=== PATIENT | male | born 1990 | race Caucasian/White ===

== ENCOUNTER 2023-10-21 17:15 | Emergency (ER) | payer SELFPAY ==
[2023-10-21] MEDS: Ketorolac 30 MG/ML SDV IM ONE (17:20)
[2023-10-21] MEDS: Ketorolac 30 MG/ML SDV ONE (18:08)
[2023-10-21] MEDS: Amoxicillin/Clavulanate K 875-125 MG Tab PO ONE (18:08)
[2023-10-21] MEDS: Amoxicillin/Clavulanate K 875-125 MG Tab ONE (18:08)
== END 2023-10-21 18:35 | disposition home or self-care (01) ==
LOC: KA.ED 17:15
DX: J36 Peritonsillar abscess (principal); K02.9 Dental caries, unspecified
CPT/HCPCS: 96372; 99282; A9270-GY; J1885

== ENCOUNTER 2024-01-20 02:53 | Emergency (ER) | payer SELFPAY | END 2024-01-20 09:39 | disposition EXP | LOC: KA.ED 02:53 | DX: T71.191A Asphyxiation due to mechanical threat to breathing due to other causes, accidental, initial encounter; T71.192A Asphyxiation due to mechanical threat to breathing due to other causes, intentional self-harm, initial encounter | CPT/HCPCS: 99285; Q3014 ==